=== PATIENT | male | born 1945 | race Caucasian/White ===

== ENCOUNTER 2017-08-14 13:25 | Observation (INO) | payer BC, MEDICARE ==
--- NOTE | 2017-08-14 14:00 | RAD ---
CHEST 1 VIEW: Date: 08/14/17 HISTORY: Chest pain for a few days. COMPARISON: None. FINDINGS: Normal cardiac silhouette. Pulmonary vessels and hilum are normal. No consolidation or mass. No pneum othorax or osseous abnormalities. IMPRESSION: No acute cardiopulmonary process. POS: [facility]
[2017-08-14 14:26] LABS: #Eosinphils 0.2 thou/uL (0.0-0.7); #Lymphocytes 1.9 thou/uL (1.20-3.40); #Monocytes 0.5 thou/uL (0.11-0.59); #Neutrophils 5.7 thou/uL (1.40-6.50); %Basophils 0.6 % (0.0-1.0); %Eosinophils 2.4 % (0.0-10.0); %Lymphocytes 22.7 % (21.0-51.0); %Monocytes 6.1 % (0.0-10.0); %Neutrophils 68.2 % (42.0-75.0); Hemoglobin 15.6 g/dL (14.0-18.0); Mean Corpuscular HGB CONC 34.8 g/dL (32.0-36.0); Mean Corpuscular Hemoglobin 30.9 pg (27.0-31.0); Mean Corpuscular Volume 88.7 fl (80.0-94.0); Mean Platelet Volume 8.3 fL (7.4-10.4); Platelet Count 164 thou/uL (130-400); RBC Distribution Width 12.9 % (11.5-14.5); Red Blood Cell (RBC) Count 5.06 mill/uL (4.70-6.10); White Blood Cell (WBC) Count 8.4 thou/uL (4.8-10.8)
[2017-08-14 14:48] LABS: ALT (SGPT) 18 U/L (8-55); AST (SGOT) 20 U/L (5-34); Albumin 4.6 g/dL (3.4-4.8); Alkaline Phosphatase 53 U/L (40-150); Anion Gap 15 mmol/L (10-20); BUN (Urea Nitrogen) 26 mg/dL (8.4-25.7); Bilirubin, Total 0.5 mg/dL (0.2-1.2); CK (CPK) 75 U/L (30-200); Calc. Creatinine Clearance 0 mL/min (70-130); Calcium 10.2 mg/dL (7.8-10.44); Carbon Dioxide 29 mmol/L (23-31); Chloride 100 mmol/L (98-107); Estimated GFR-MDRD 60; Globulin 2.8 g/dL (2.4-3.5); Glucose 216 mg/dL (80-115); Lipase 44 U/L (8-78); Potassium 3.7 mmol/L (3.5-5.1); Protein, Total 7.4 g/dL (5.8-8.1); Sodium 140 mmol/L (136-145)
[2017-08-14 14:52] LABS: CKMB 1.3 ng/mL (0-6.6); Troponin I Less than 0.010 ng/mL (< 0.028)
--- NOTE | 2017-08-14 16:08 | HP ---
PRIMARY CARE PHYSICIAN: Dr. Gerardo Castillo. REASON FOR ADMISSION: Unstable angina. HISTORY OF PRESENT ILLNESS: A 71-year-old male who has underlying history of diabetes type 2, hypert ension, dyslipidemia, and obesity, who came to emergency room for evaluation of chest discomfort. Th e patient reports that for last week or two, he was experiencing intermittent dizziness. For last 2- 3 weeks, he has decreased exercise tolerance. He gets dyspnea on exertion. For last 2-3 weeks, he a lso gets intermittent chest pressure sensation, lasts for 5-20 minutes, subsides by itself and after that patient feels exhausted and fatigued feeling. This was intermittently going on for last 2-3 wee ks. There is no specific aggravating or relieving factor, but patient noticed that his exercise tole chung is reduced. Patient saw primary care physician. At that time, patient was found with multiple PVCs and patient w as referred to Cardiology. Dr. Conway saw this patient and he gave him 1 week of Holter monitoring, which he returned back last week and there was plan for outpatient echocardiography and stress test. Last 3 nights, patient every night, he is waking up from sleep with chest discomfort. He has very di fficult to describe, but he feels that feeling gets significantly worse and so will wake up and that feeling lasted for 5-10 minutes and subsided by itself and after that he goes back to sleep. This becker ppened back to back 3 nights and that is why he was concerned about and decided to come to emergency room for evaluation. He denies any associated nausea, vomiting, diaphoresis. He denies any constipa tion, diarrhea, melena, hematochezia. He denies any acid reflux. He denies any headache, focal barbara r or sensory symptoms, but he feels dizziness. He denies any fever or chills. He denies any pleuris y. He denies any cough. He denies any orthopnea, PND or leg swelling. He denies any calf tendernes s. He denies any immobilization. His lifestyle is pretty much sedentary. He is working in the [employer]. REVIEW OF SYSTEMS: The following complete review of systems was negative, unless otherwise mentioned in the HPI or below: Constitutional: Weight loss or gain, ability to conduct usual activities. Skin: Rash, itching. Eyes: Double vision, pain. ENT/Mouth: Nose bleeding, neck stiffness, pain, tenderness. Cardiovascular: Palpitations, dyspnea on exertion, orthopnea. Respiratory: Shortness of breath, wheezing, cough, hemoptysis, fever or night sweats. Gastrointestinal: Poor appetite, abdominal pain, heartburn, nausea, vomiting, constipation, or diarr hea. Genitourinary: Urgency, frequency, dysuria, nocturia. Musculoskeletal: Pain, swelling. Neurologic/Psychiatric: Anxiety, depression. Allergy/Immunologic: Skin rash, bleeding tendency. Please see my HPI for pertinent positive and negative. All other review of systems reviewed and nega tive except as mentioned in the HPI. ALLERGIES: No known drug allergy. CURRENT HOME MEDICATIONS: The patient did not bring medication in the emergency room at this point, but his family member is going to obtain medication from home. At that time, we will review. Davey owens is not able to tell me exact name and dose of medication. PAST MEDICAL HISTORY: Diabetes type 2, obesity, dyslipidemia, hypertension, and history of spina bif tessie. PAST SURGICAL HISTORY: The patient had cardiac catheterization about 20 years ago without any signif icant abnormality, tonsillectomy and vasectomy. PAST PSYCHIATRIC HISTORY: Reviewed and negative. FAMILY HISTORY: Father had CABG in their 70s. Mother had multiple TIA. Grandfather had heart attac k as well as aneurysm rupture. No family history of cancer. SOCIAL HISTORY: The patient lives at home with family. He denies any tobacco, alcohol or illicit dr ug abuse. He is working in the office. He has pretty much sedentary lifestyle. EMERGENCY ROOM COURSE: Reviewed. PHYSICAL EXAMINATION: VITAL SIGNS: On arrival, blood pressure 135/95, pulse 74, respiratory rate 20, temperature 98.0, sat uration 96% on room air, weight 98.4 kilograms. GENERAL: Patient is currently alert, awake, no acute distress. HEAD: Normocephalic, atraumatic. EYES: Pupils round, reactive to light. Extraocular muscle intact. ENT: Oropharynx within normal limits. Moist mucous membranes, no oral lesion, no pharyngeal erythem a, no exudate. NECK: Supple, no JVD, no thyromegaly, no carotid bruit, no jugular venous distention. LUNGS: Clear to auscultation without any rhonchi or rales. CARDIAC: S1 and S2 regular without any murmur. ABDOMEN: Soft, obesity present. Bowel sounds present, nontender, nondistended. No organomegaly, no mass, no suprapubic tenderness. BACK: Examination unremarkable, no CVA tenderness. EXTREMITIES: Upper extremity passive movements of all joints are normal. Lower extremities: No franky ma. Good peripheral pulsation, no calf tenderness. SKIN: No skin rash. HEMATOLOGICAL SYSTEM: No lymphadenopathy. PSYCHIATRIC: Normal affect. NEUROLOGIC: Nonfocal examination. The patient moves all 4 limbs. Plantar bilateral flexor. IMAGING DATA AND SIGNIFICANT LABORATORY DATA: 1. EKG was showing normal sinus rhythm, multiple premature ventricular complexes, incomplete right b undle branch block pattern, moderate LVH. 2. Chest x-ray based on my review, no acute cardiopulmonary process. 3. CBC: WBC 8.4, hemoglobin 15.6, platelet 164. 4. BMP: Sodium 140, potassium 3.7, chloride 100, carbon dioxide 29, anion gap 15, BUN 26, creatinin e 1.20, glucose 216, calcium 10.2. 5. LFT: AST 20, ALT 18, alkaline phosphatase 53, albumin 4.6, lipase 44. CK 75, CK-MB 1.3, troponi n I less than 0.010. ASSESSMENT AND PLAN/IMPRESSION: 1. Unstable angina. This patient has symptoms consistent with recurrent angina which is getting wor se. He has dyspnea on exertion, intermittent angina. For last 2 weeks and for the last 3 nights, he has to wake up from severe chest discomfort with pressure-like feeling well though his cardiac enzym es are negative and EKG is not showing any new ischemic changes, but he had multiple PVCs on monitor. I am considering this as patient has an unstable angina. He has low LUIS CARLOS score, but patient may ne ed a cardiac catheterization. We will consult Cardiology. This patient is already planned for outpa tient stress test and echocardiography which we will try to do while in hospital. He may benefit fro m cardiac catheterization. We will do serial cardiac enzymes, monitor on telemetry floor. We will c heck lipid profile for risk stratification. We will continue nitropatch q.8 hourly, aspirin 325 mg p .o. daily and we will also provide Lovenox 1 mg per kg subcu twice daily. We will keep him n.p.o. af ter midnight. Stress test versus cardiac catheterization will be decided after Cardiology evaluation . We will obtain echocardiography. 2. Diabetes type 2. We will continue insulin as per sliding scale per protocol. Diabetic diet will be given. 3. Obstructive sleep apnea. We will continue his home continuous positive airway pressure machine a t 12 cm of water. 4. Hypertension. We are continuing with nitropatch q.8 hourly. We will obtain patient's home medic ations and resume selected home medication. 5. Obesity. Dietary education given and weight loss education given. Healthy lifestyle measures di scussed with the patient. 6. Dyslipidemia. Check lipid profile tomorrow and continue Lipitor 40 mg p.o. at bedtime. 7. Deep venous thrombosis prophylaxis. Patient is already given Lovenox 1 mg per kg. 8. Multiple premature ventricular contractions, most likely related with underlying ischemia. We wi ll start metoprolol 25 mg p.o. twice daily. 9. Deep venous thrombosis prophylaxis. Patient is already on Lovenox therapy. 10. Gastrointestinal prophylaxis, Pepcid 20 mg p.o. b.i.d. 11. Code status: The patient is FULL CODE. The patient is making his decision by himself. Disposition plan based on clinical course and Cardiology recommendation. Plan of care discussed with the patient and family member at bedside in the emergency room.
[2017-08-14 17:35] VITALS: BMI 31.7
[2017-08-14] MEDS ORDERED: hydrALAZINE 20 MG/ML VIAL SLOW IVP PRN (17:35)
[2017-08-14] MEDS ORDERED: Dextrose 5% in Water 1,000 ML IV PRN (17:35)
[2017-08-14] MEDS ORDERED: Nitroglycerin 0.4 MG TAB (25 Tab Bottle) PO PRN (17:35)
[2017-08-14] MEDS ORDERED: Eucerin (Mineral Oil/Petrolatum,White) 30 gm Jar TOP PRN (17:35)
[2017-08-14] MEDS ORDERED: Milk Of Magnesia 30 ML UDCUP PO PRN (17:35)
[2017-08-14] MEDS ORDERED: Artificial Tears 18 DROP/0.9 ML EA EYE PRN (17:35)
[2017-08-14] MEDS ORDERED: Loratadine 10 MG TAB PO PRN (17:35)
[2017-08-14] MEDS ORDERED: Senokot 8.6 MG TAB PO PRN (17:35)
[2017-08-14] MEDS ORDERED: Sodium Chloride 0.65% Nasal 44 ML BOT EA NARE PRN (17:35)
[2017-08-14] MEDS ORDERED: Ondansetron HCl/PF 4 MG/2 ML Vial IVP PRN (17:35)
[2017-08-14] MEDS ORDERED: Dextrose 50% Abboject 50 ML SYRINGE SLOW IVP PRN (17:35)
[2017-08-14] MEDS ORDERED: Diabetic Tussin 200 MG/10 ML UDCUP PO PRN (17:35)
[2017-08-14] MEDS ORDERED: Loperamide HCl 2 MG CAP PO PRN (17:35)
[2017-08-14] MEDS ORDERED: Zolpidem Tartrate 5 MG TAB PO PRN (17:35)
[2017-08-14] MEDS ORDERED: HYDROcodone/Acetaminophen 5/325 mg Tablet PO PRN (17:35)
[2017-08-14] MEDS ORDERED: Acetaminophen 325 MG TAB PO PRN (17:35)
[2017-08-14] MEDS ORDERED: Ondansetron ODT 4 MG TAB PO PRN (17:35)
[2017-08-14] MEDS ORDERED: Chloraseptic Spray 180 ml Bottle PO PRN (17:35)
[2017-08-14] MEDS ORDERED: Mag-Al 1200 mg/1200 mg/30 ML UDCUP PO PRN (17:35)
[2017-08-14] MEDS ORDERED: HumaLOG 300 UNITS/3 ML VIAL SC PRN ×2 (17:35)
[2017-08-14] MEDS ORDERED: Communication Order-Pharmacy FS SCH (18:30)
[2017-08-14 18:33] LABS: Troponin I Less than 0.010 ng/mL (< 0.028)
--- NOTE | 2017-08-14 18:59 | CON ---
DATE OF CONSULTATION: 08/14/2017 CARDIOLOGY CONSULTATION REASON FOR CONSULTATION: Chest pain. HISTORY OF PRESENT ILLNESS: Mr. Hernandez is a pleasant 71-year-old white gentleman who comes to the hospital for chest pain. He was seen just about a week or two ago in the office for the first time for PVCs. He had some chest discomfort, saw his PCP, was found to have several PVCs on the EKG, but no ischemic changes. He was sent to me and I saw him. We did a Holter monitor, which actually has a lready resulted. He showed several very frequent PVCs about 20,000 worth. He had episodes of 3 beat s of PVCs in a row consistent with nonsustained SVT, but is very slow at a rate about 100 beats per m inute, so this may just be PVCs consecutively. However, he started noticing increase in his chest pa in in the last few days to the point where he was woken up in the middle of the night by it. He deci ded to come in for evaluation. So far, he has been ruled out with negative enzymes and EKG was unrem arkable for ischemia; however, his symptoms are concerning for angina. PAST MEDICAL HISTORY: 1. Type 2 diabetes. 2. Hypertension. 3. Hyperlipidemia. 4. History of normal heart catheterization in 2012. 5. History of multiple very frequent PVCs. 6. History of spina bifida. OUTPATIENT MEDICATIONS: 1. Metformin 1500 mg a day. 2. Vitamin B12. 3. Aspirin 81 mg a day. 4. Potassium chloride 10 mEq a day. 5. Pioglitazone 15 mg at bedtime. 6. Losartan/hydrochlorothiazide 100/25 mg a day. 7. Vitamin D3. 8. Norvasc 5 mg at bedtime. 9. Metoprolol succinate 100 mg at bedtime. 10. Glipizide 10 mg b.i.d. 11. Rosuvastatin 5 mg at bedtime. ALLERGIES: No known drug allergies. SOCIAL HISTORY: No alcohol, tobacco or drugs. FAMILY HISTORY: Father had bypass in his 70s. Mother with multiple strokes, TIAs. PAST SURGICAL HISTORY: 1. Cardiac catheterization several years back which was normal. 2. Tonsillectomy. 3. Vasectomy. REVIEW OF SYSTEMS: A 12 point review of systems was done, is otherwise negative unless stated in the history of present illness. PHYSICAL EXAMINATION: VITAL SIGNS: Temperature 98.2, pulse 74, respiratory rate 20, satting 96% on room air, blood pressur e 136/95. GENERAL: Awake, alert and oriented x3, in no distress. HEENT: Normocephalic, atraumatic. NECK: Supple. LUNGS: Clear. CARDIOVASCULAR: S1, S2. No S3, no S4. No murmurs, no rubs. ABDOMEN: Soft. Positive bowel sounds. EXTREMITIES: No edema. SKIN: Warm and dry. LABORATORY WORK: Reviewed. CBC is unremarkable. Chemistry is unremarkable except for glucose of 21 6. GFR was 60. Troponin is undetectable x1. CK-MB is 1.3, albumin of 4.6, lipase of 44. EKG was reviewed. Chest x-ray was reviewed and unremarkable. ASSESSMENT AND PLAN: Unstable angina: Symptoms significantly have changed since last seen and are c onsistent with a diagnosis of unstable angina. We will plan on doing a heart catheterization tomorro w to further risk stratify. We have spoken about the risks and benefits of the procedure, risks incl uding, but not limited to stroke, myocardial infarction, , bleeding and need for blood transfusi on, limb loss, organ loss, vessel injury requiring surgical repair, emergent bypass surgery need. He verbalized understanding of this and he agrees to proceed. Drug-eluting stents if needed. Further recommendation per results of the coronary angiogram.
[2017-08-14] MEDS ORDERED: Losartan/Hydrochlorothiazide 100 mg/25 mg Tablet PO SCH (21:00)
[2017-08-14] MEDS ORDERED: Pioglitazone HCl 15 MG TAB PO SCH (21:00)
[2017-08-14] MEDS ORDERED: Potassium Chloride 10 MEQ TAB PO SCH (21:00)
[2017-08-14] MEDS ORDERED: Atorvastatin Calcium 40 MG TAB PO SCH (21:00)
[2017-08-14] MEDS ORDERED: Cyanocobalamin (Vitamin B-12) 1,000 MCG TAB PO SCH (21:00)
[2017-08-14] MEDS ORDERED: Metoprolol Tartrate 25 MG TAB PO SCH (21:00)
[2017-08-14] MEDS ORDERED: Enoxaparin Sodium 100 MG/ML SYRINGE SC SCH (21:00)
[2017-08-14] MEDS ORDERED: Amlodipine 5 MG TAB PO SCH (21:00)
[2017-08-14] MEDS ORDERED: Rosuvastatin 5 MG TAB PO SCH (21:00)
[2017-08-14 21:06] LABS: Troponin I Less than 0.010 ng/mL (< 0.028)
[2017-08-14] MEDS: Famotidine 20 MG TAB PO SCH (22:12)
[2017-08-14] MEDS ORDERED: Sodium Chloride 0.9% 1,000 ML IV SCH (23:30)
[2017-08-14] MEDS: Nitroglycerin 2% Ointment 1 INCH/1 GM Packet TOP SCH (23:37)
[2017-08-15] MEDS: Nitroglycerin 2% Ointment 1 INCH/1 GM Packet TOP SCH (00:10)
[2017-08-15 04:59] LABS: #Basophils 0.1 thou/uL (0.0-0.2); #Eosinphils 0.2 thou/uL (0.0-0.7); #Lymphocytes 2.6 thou/uL (1.20-3.40); #Monocytes 0.8 thou/uL (0.11-0.59); #Neutrophils 5.5 thou/uL (1.40-6.50); %Basophils 0.6 % (0.0-1.0); %Eosinophils 2.4 % (0.0-10.0); %Lymphocytes 28.3 % (21.0-51.0); %Monocytes 8.4 % (0.0-10.0); %Neutrophils 60.3 % (42.0-75.0); Hemoglobin 15.5 g/dL (14.0-18.0); Mean Corpuscular HGB CONC 33.3 g/dL (32.0-36.0); Mean Corpuscular Hemoglobin 29.5 pg (27.0-31.0); Mean Corpuscular Volume 88.5 fl (80.0-94.0); Mean Platelet Volume 8.4 fL (7.4-10.4); Platelet Count 151 thou/uL (130-400); RBC Distribution Width 12.9 % (11.5-14.5); Red Blood Cell (RBC) Count 5.24 mill/uL (4.70-6.10); White Blood Cell (WBC) Count 9.1 thou/uL (4.8-10.8)
[2017-08-15 05:09] LABS: Anion Gap 12 mmol/L (10-20); BUN (Urea Nitrogen) 22 mg/dL (8.4-25.7); Calc. Creatinine Clearance 85 mL/min (70-130); Carbon Dioxide 29 mmol/L (23-31); Chloride 101 mmol/L (98-107); Cholesterol 117 mg/dl (< 200 Desired); Estimated GFR-MDRD 64; Glucose 177 mg/dL (80-115); HDL Cholesterol 29 mg/dL (>60 Neg Risk); LDL Cholesterol, Calculated 35 mg/dL; Potassium 3.5 mmol/L (3.5-5.1); Sodium 138 mmol/L (136-145); Triglycerides 264 mg/dL (Less than 150)
[2017-08-15] MEDS: Famotidine 20 MG TAB PO SCH (05:44)
[2017-08-15] MEDS ORDERED: Lidocaine 1% (PF) 30 ML VIAL ONE (07:02)
[2017-08-15] MEDS ORDERED: Nitroglycerin 100MG/250ML BOT 250 ML ONE (08:15)
[2017-08-15] MEDS ORDERED: Verapamil 5 MG/2 ML VIAL ONE (08:15)
[2017-08-15] MEDS ORDERED: Fentanyl 100 MCG/2 ML VIAL ONE (08:36)
[2017-08-15] MEDS ORDERED: Midazolam HCl 2 mg/2 ml Vial ONE (08:36)
[2017-08-15] MEDS ORDERED: Heparin 10,000 UNITS/1 ML VIAL ONE (08:36)
[2017-08-15] MEDS ORDERED: Acetaminophen/Codeine 30-300mg Tablet PO PRN (09:00)
[2017-08-15] MEDS ORDERED: glipiZIDE 10 MG TAB PO SCH (09:00)
[2017-08-15] MEDS ORDERED: Aspirin 325 MG TAB PO SCH (09:00)
[2017-08-15] MEDS ORDERED: traMADol HCl 50 MG TAB PO PRN (09:00)
[2017-08-15] MEDS ORDERED: Sodium Chloride 0.9% 1,000 ML IV SCH (09:15)
[2017-08-15] MEDS ORDERED: Sodium Chloride 0.9% 200 ML IV SCH (10:00)
[2017-08-15] MEDS ORDERED: Iopamidol 370 76% 100 ML VIAL ONE (11:35)
--- NOTE | 2017-08-15 11:50 | PDOC.PN ---
- Subjective Encounter Start Date: 08/15/17 Encounter Start Time: 07:10 -: old records requested/rev Patient seen and examined for chest pain. No new complaints. Noted overnight events - Objective Resuscitation Status: Resuscitation Status FULL:Full Resuscitation MAR Reviewed: Yes Vital Signs & Weight: Vital Signs (12 hours) Temp Pulse Resp BP BP Pulse Ox 08/15/17 09:07 55 L 14 119/64 08/15/17 07:55 97.5 F L 55 L 14 08/15/17 07:10 97.5 F L 72 12 118/69 95 08/15/17 04:00 97.4 F L 53 L 20 118/70 96 Weight Weight 215 lb I&O: 08/14/17 08/15/17 08/16/17 06:59 06:59 06:59 Intake Total 803 Balance 803 Result Diagrams: 08/15/17 03:53 08/15/17 03:53 Additional Labs: Accuchecks 08/15/17 08/14/17 10:49 20:47 POC Glucose 197 H 125 H Radiology Reviewed by me: Yes EKG Reviewed by me: Yes Phys Exam - Physical Examination Constitutional: NAD HEENT: PERRLA, moist MMs, sclera anicteric Neck: no JVD, supple Respiratory: no wheezing, no rales, no rhonchi Cardiovascular: RRR, no significant murmur, no rub Gastrointestinal: soft, non-tender, no distention, positive bowel sounds Musculoskeletal: no edema, pulses present Neurological: non-focal, normal sensation, moves all 4 limbs Lymphatic: no nodes Psychiatric: normal affect, A&O x 3 Skin: no rash, normal turgor Dx/Plan (1) PVCs (premature ventricular contractions) Code(s): I49.3 - VENTRICULAR PREMATURE DEPOLARIZATION Status: Acute (2) Unstable angina Status: Acute (3) Diabetes type 2, controlled Code(s): E11.9 - TYPE 2 DIABETES MELLITUS WITHOUT COMPLICATIONS Status: Chronic (4) Dyslipidemia Code(s): E78.5 - HYPERLIPIDEMIA, UNSPECIFIED Status: Chronic (5) Hypertension Code(s): I10 - ESSENTIAL (PRIMARY) HYPERTENSION Status: Chronic (6) SHENA (obstructive sleep apnea) Code(s): G47.33 - OBSTRUCTIVE SLEEP APNEA (ADULT) (PEDIATRIC) Status: Chronic (7) Obesity Code(s): E66.9 - OBESITY, UNSPECIFIED Status: Chronic - Plan cont current plan of care, plan discussed w/ family * cardiac cath normal * echo pending * will discharge today when cardiology ok. Review of Systems - Review of Systems Eyes: negative: Pain, Vision Change, Conjunctivae Inflammation, Eyelid Inflammation, Redness, Other ENT: negative: Ear Pain, Ear Discharge, Nose Pain, Nose Discharge, Nose Congestion, Mouth Pain, Mouth Swelling, Throat Pain, Throat Swelling, Other Respiratory: negative: Cough, Dry, Shortness of Breath, Hemoptysis, SOB with Excertion, Pleuritic Pain, Sputum, Wheezing Cardiovascular: negative: chest pain, palpitations, orthopnea, paroxysmal nocturnal dyspnea, edema, light headedness, other Gastrointestinal: negative: Nausea, Vomiting, Abdominal Pain, Diarrhea, Constipation, Melena, Hematochezia, Other Genitourinary: negative: Dysuria, Frequency, Incontinence, Hematuria, Retention , Other Musculoskeletal: negative: Neck Pain, Shoulder Pain, Arm Pain, Back Pain, Hand Pain, Leg Pain, Foot Pain, Other Skin: negative: Rash, Lesions, Jagdish, Bruising, Other Neurological: negative: Weakness, Numbness, Incoordination, Change in Speech, Confusion, Seizures, Other - Medications/Allergies Allergies/Adverse Reactions: Allergies Allergy/AdvReac Type Severity Reaction Status Date / Time No Known Allergies Allergy Verified 08/15/17 00:08 Medications: Current Medications Acetaminophen (Tylenol) 650 mg PO Q4H PRN PRN Reason: Headache/Fever or Pain Acetaminophen/Codeine Phosphate (Tylenol #3) 1 tab PO Q4H PRN PRN Reason: Mild Pain (1-3) Hydrocodone Bitart/Acetaminophen ([place] 5/325) 1 tab PO Q4H PRN PRN Reason: Moderate Pain (4-6) Al Hydroxide/Mg Hydroxide (Maalox) 30 ml PO Q6H PRN PRN Reason: Heartburn or Indigestion Amlodipine Besylate (Norvasc) 5 mg PO [facility] Last Admin: 08/14/17 22:12 Dose: 5 mg Artificial Tears (Tears Naturale) 0 drop EA EYE PRN PRN PRN Reason: Dry Eyes Aspirin (Aspirin) 325 mg PO DAILY [facility] Last Admin: 08/15/17 05:44 Dose: 325 mg Cholecalciferol (Vitamin D3) 1,000 units PO [facility] Last Admin: 08/14/17 22:12 Dose: 1,000 units Cyanocobalamin (Vitamin B-12) 5,000 mcg PO [facility] Last Admin: 08/14/17 22:12 Dose: 5,000 mcg Dextrose/Water (Dextrose 50%) 25 gm SLOW IVP PRN PRN PRN Reason: Hypoglycemia Famotidine (Pepcid) 20 mg PO BID [facility] Last Admin: 08/15/17 05:44 Dose: 20 mg Glipizide (Glucotrol) 10 mg PO DAILY [facility] Glucagon (Glucagon) 1 mg IM PRN PRN PRN Reason: Hypoglycemia Guaifenesin (Robitussin Sf) 200 mg PO Q4H PRN PRN Reason: Cough HCTZ/Losartan Potassium (Hyzaar 100/25) 1 tab PO [facility] Last Admin: 08/14/17 22:12 Dose: 1 tab Hydralazine HCl (Apresoline) 10 mg SLOW IVP Q4H PRN PRN Reason: Systolic BP > 180 Dextrose/Water (D5w) 1,000 mls @ 0 mls/hr IV .Q0M PRN; As Directed PRN Reason: Hypoglycemia Sodium Chloride (Normal Saline 0.9%) 1,000 mls @ 100 mls/hr IV .Q10H [facility] Last Admin: 08/15/17 09:52 Dose: Not Given Sodium Chloride (Normal Saline 0.9%) 200 mls @ 0 mls/hr IV 1000 FIOR PRN Reason: As Directed Stop: 08/15/17 12:00 Insulin Human Lispro (Humalog) 0 units SC .MODERATE SLIDING SC PRN PRN Reason: Moderate Correctional Scale Insulin Human Lispro (Humalog) 0 units SC .BEDTIME SLIDING SC PRN PRN Reason: Bedtime Correctional Scale Loperamide HCl (Imodium) 2 mg PO PRN PRN PRN Reason: Diarrhea/Loose Stools Loratadine (Claritin) 10 mg PO DAILYPRN PRN PRN Reason: Sinus Symptoms Magnesium Hydroxide (Milk Of Magnesium) 30 ml PO DAILYPRN PRN PRN Reason: Constipation Metoprolol Succinate (Toprol Xl) 100 mg PO [facility] Last Admin: 08/14/17 22:12 Dose: 100 mg Mineral Oil/White Petrolatum (Eucerin Cream) 0 gm TOP BIDPRN PRN PRN Reason: Dry Skin Miscellaneous Information (Communication Order-Pharmacy) 0 each FS ONE [facility] Stop: 08/15/17 18:31 Nitroglycerin (Nitro-Bid 2% Ointment) 0.5 inch TOP Q8HR [facility] Last Admin: 08/15/17 00:10 Dose: Not Given Ondansetron HCl (Zofran Odt) 4 mg PO Q6H PRN PRN Reason: Nausea/Vomiting Ondansetron HCl (Zofran) 4 mg IVP Q6H PRN PRN Reason: Nausea/Vomiting Phenol (Chloraseptic [place] 180 Ml Bot) 0 ml PO PRN PRN PRN Reason: Sore Throat Pioglitazone HCl (Actos) 15 mg PO HS [facility] Last Admin: 08/14/17 23:38 Dose: Not Given Potassium Chloride (Klor-Con 10) 10 meq PO [facility] Last Admin: 08/14/17 23:44 Dose: 10 meq Rosuvastatin Calcium (Crestor) 5 mg PO [facility] Last Admin: 08/14/17 23:44 Dose: 5 mg Senna (Senokot) 2 tab PO HSPRN PRN PRN Reason: Constipation Sodium Chloride ([place] Nasal [place] 0.65%) 0 ml EA NARE QIDPRN PRN PRN Reason: Nasal Congestion Tramadol HCl (Ultram) 50 mg PO Q6H PRN PRN Reason: Moderate Pain (4-6) Zolpidem Tartrate (Ambien) 5 mg PO HSPRN PRN PRN Reason: Insomnia
[2017-08-15 12:08] VITALS: BP 115/56; TEMP 97.4
--- NOTE | 2017-08-15 13:57 | DIS ---
DATE OF ADMISSION: 08/14/2017 DATE OF DISCHARGE: 08/15/2017 PRIMARY CARE PHYSICIAN: Gerardo Castillo M.D. DISCHARGE DISPOSITION: Home. PRIMARY DISCHARGE DIAGNOSES: 1. Premature ventricular contractions. 2. Unstable angina. SECONDARY DISCHARGE DIAGNOSES: Diabetes type 2, dyslipidemia, hypertension, obesity, and obstructive sleep apnea. PRIMARY PROCEDURE/OPERATION: Cardiac catheterization was normal. RADIOLOGICAL INVESTIGATION: Chest x-ray normal. Echocardiography showed diastolic dysfunction. SIGNIFICANT LABORATORY DATA: WBC 9.1, hemoglobin 15.5, platelet 151. Sodium 138, creatinine 1.13, a nd LDL 35. Cardiac enzymes negative. LFT normal. DISCHARGE MEDICATIONS: Amlodipine 5 mg p.o. at bedtime, aspirin 81 mg p.o. at bedtime, vitamin D3 10 00 units p.o. daily, vitamin B12 5000 mcg p.o. at bedtime, glipizide 10 mg p.o. daily, losartan with hydrochlorothiazide one tablet p.o. at bedtime, metformin 1500 mg p.o. daily (patient is advised to s tart after 48 hours), Toprol-XL 100 mg p.o. at bedtime, Actos 15 mg p.o. at bedtime, potassium chlori de 10 mEq p.o. at bedtime, Crestor 5 mg p.o. at bedtime. CONTRAINDICATIONS: None. CODE STATUS: FULL CODE. INPATIENT CONSULTANTS: Dr. Conway. TEST RESULTS PENDING ON DISCHARGE: None. ALLERGIES: No known drug allergy. DISCHARGE PLAN: Post hospital, patient will follow up with primary care physician in 1 week. The pa tiemartin will make appointment with Dr. Conway as instructed. HOSPITAL COURSE: A 71-year-old male with above-mentioned medical problem who was experiencing interm ittent dizziness and chest pain for the last 2 weeks. He was also having dyspnea on exertion. He wa s feeling chest tightness. For last 3 nights, he was waking up with chest pain and we suspected unst able angina. We kept this patient in the hospital for observation. We did serial cardiac enzyme emeterio t were negative for any acute abnormality. We consulted Cardiology and Cardiology did cardiac cathet erization. Cardiac catheterization was completely normal. Echocardiography showed diastolic dysfunc tion. At this point, this patient has symptomatic premature ventricular complexes that contributing to his chest pain and dizziness. Patient will follow up with Cardiology as instructed. We are not making any change in his home medication. If Cardiology okay, then this patient will be d ischarged home later on today. The patient is seen and examined at bedside today. Please see my progress note from today for furthe r details. The patient is instructed to hold metformin for 48 hours.
[2017-08-16] MEDS ORDERED: glipiZIDE 10 MG TAB PO SCH (09:00)
== END 2017-08-15 13:51 | disposition home or self-care (01) ==
LOC: ERS 13:25 → 2SW 17:31
PROVIDERS: ADMIT Family Medicine; ATTEND Family Medicine
DX: I49.9 Cardiac arrhythmia, unspecified (principal); E11.9 Type 2 diabetes mellitus without complications; I10 Essential (primary) hypertension; E78.2 Mixed hyperlipidemia; Z79.899 Other long term (current) drug therapy; Z79.84 Long term (current) use of oral hypoglycemic drugs; Z79.82 Long term (current) use of aspirin
CPT/HCPCS: 36415; 36416; 71045; 80048; 80053; 80061; 82553; 83690; 84484; 85025; 93005; 93306; 93458; 93798; 96360; 96361; 96372; 99152; C1769; G0378; J1644; J1650; J2001; J2250; J3010

== ENCOUNTER 2017-10-17 15:31 | Outpatient (CLI) | payer BC ==
[2017-10-17 15:46] VITALS: BMI 31.2
[2017-10-17 16:36] LABS: Hemoglobin 15.8 g/dL (14.0-18.0); Mean Corpuscular HGB CONC 35.4 g/dL (32.0-36.0); Mean Corpuscular Hemoglobin 31.1 pg (27.0-31.0); Mean Corpuscular Volume 87.9 fL (78.0-98.0); Mean Platelet Volume 8.1 fL (7.4-10.4); Platelet Count 165 thou/uL (130-400); RBC Distribution Width 12.7 % (11.5-14.5); Red Blood Cell (RBC) Count 5.07 mill/uL (4.70-6.10); White Blood Cell (WBC) Count 8.7 thou/uL (4.8-10.8)
[2017-10-17 16:48] LABS: INR-International Normal Ratio 1.1; PTT 31.1 SEC (22.9-36.1); Prothrombin Time 14.4 SEC (12.0-14.7)
[2017-10-17 16:53] LABS: Anion Gap 9 mmol/L (10-20); BUN (Urea Nitrogen) 28 mg/dL (8.4-25.7); Calc. Creatinine Clearance 73 mL/min (70-130); Calcium 10.1 mg/dL (7.8-10.44); Carbon Dioxide 32 mmol/L (23-31); Chloride 102 mmol/L (98-107); Estimated GFR-MDRD 53; Glucose 157 mg/dL (80-115); Sodium 139 mmol/L (136-145)
--- NOTE | 2017-10-19 14:33 | EKG ---
Test Reason : Blood Pressure : / mmHG Vent. Rate : 052 BPM Atrial Rate : 052 BPM P-R Int : 194 ms QRS Dur : 102 ms QT Int : 438 ms P-R-T Axes : 039 -25 018 degrees QTc Int : 407 ms Sinus bradycardia Incomplete right bundle branch block Cannot rule out Anterior infarct , age undetermined Abnormal ECG When compared with ECG of 14-AUG-2017 13:29, Premature ventricular complexes are no longer Present QT has shortened Confirmed by DR. Jorge CAMPBELL ([id number]) on 10/19/2017 2:32:30 PM Referred By: HARINDER Confirmed By:DR. Jorge CAMPBELL
== END 2017-10-17 15:32 | disposition home or self-care (01) ==
LOC: LABBT 15:31
PROVIDERS: ATTEND Internal Medicine Cardiovascular Disease
DX: Z01.818 Encounter for other preprocedural examination (principal); I49.3 Ventricular premature depolarization
CPT/HCPCS: 80048; 85027; 85610; 85730; 93005; 93010

== ENCOUNTER 2017-10-20 05:53 | Observation (INO) | payer BC ==
[2017-10-20] MEDS ORDERED: Lidocaine 1% (PF) 30 ML VIAL ONE (06:43)
[2017-10-20] MEDS ORDERED: Heparin 0 ML ONE (06:43)
[2017-10-20] MEDS ORDERED: Heparin 10,000 UNITS/1 ML VIAL ONE ×2 (06:43→10:22)
[2017-10-20] MEDS ORDERED: Propofol 500 MG/50 ML VIAL ONE ×5 (08:04→10:22)
[2017-10-20] MEDS ORDERED: Heparin 25,000 units/D5W 500 ML ONE (09:38)
[2017-10-20] MEDS ORDERED: Isoproterenol 0.2 MG/1 ML AMP ONE (10:39)
[2017-10-20] MEDS ORDERED: Protamine Sulfate 50 MG/5 ML VIAL ONE (11:27)
[2017-10-20 13:15] VITALS: BMI 31.6
--- NOTE | 2017-10-20 13:34 | OP ---
DATE OF PROCEDURE: 10/20/2017 SURGEON: Dr. Berhane Hussein REFERRING PHYSICIAN: Dr. Linus Conway and Dr. Gerardo Castillo PROCEDURE: Electrophysiology study and radiofrequency ablation. REASON FOR PROCEDURE: Mr. 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 He has history of normal LV function and a prior left heart catheterization shows only mild coronary artery disease with 40-50% mid LAD stenosis only. He also has type 2 diabetes, hypertension. He is a gentleman experiencing increasing fatigue and tiredness. In view of the borderline LV function and high PVC burden of 30% at this time the plan is to ablate his PVCs. PROCEDURE: The patient received propofol by Anesthesia specialist. The right and left femoral veins area was prepped, draped, anesthetized using subcutaneous lidocaine. Two 8-Guamanian short sheaths were introduced in the right femoral venous area with ultrasound guidance. Through this a Decapolar catheter was advanced to the right ventricle and a ThermoCool SFST catheter was advanced to the right ventricle as well. 3D mapping of the right ventricle was performed, especially in the outflow tract. No early activation signal seen during the patient's frequent PVCs in this chamber. Following that, the left femoral vein, this area was prepped, draped, anesthetized and a 11 Guamanian short sheath was introduced through which an ice catheter was advanced to the right atrium and then the right ventricle. Through this location monitoring of the cath manipulation of the left side was performed as well as monitoring for effusion was performed. The right femoral artery was also accessed using multipurpose needle under ultrasound guidance. The ThermoCool SFST catheter was advanced to right femoral artery. Then, the aorta and eventually the aorta cuff. With close attention to the coronary artery origins 3D mapping of the 3 cusps were performed. No early activation during the PVCs are noted in this chamber either. Following that with full deflection the aortic valve was crossed, again close attention not to injure any of the arteries. A 3D mapping of the left ventricle was performed. The early activation was found between the left popliteal muscles and the mitral valve annulus superior aspect. During PVCs the local activation electrograms preceding the QRS by over 30 milliseconds in the best location. Radiofrequency ablation was delivered at this spot with 40 santana. Total of 6 ablation lesions were delivered with a total of 6.17 ablation time. During the first ablation the PVCs diminished and no recurrences were seen after that. The patient was placed on Isuprel and a extrastimuli fibrillation from the RV catheter was performed with up to 4 ventricular extrastimuli decremented to the refractory period. The RV ERP was 600/310/360/240. No ventricular tachycardia and no recurrent PVCs were seen on Isuprel. Baseline measurements. The sinus cycle length 841, NV 140, QRS 108, QT 388, 150 HV, 39 milliseconds. At the end of the case no pericardial effusion noted by ice and by cardiac silhouette The catheter was removed. Throughout the case IV heparin was administered to keep ACT over 350. At the end of the case the IV heparin was reversed with protamine administration. Catheter was pulled in the [employer]. The patient left with no complications. PRESTON
[2017-10-20] MEDS ORDERED: PROPOFOL 200 MG/20 ML VIAL ONE (15:09)
[2017-10-20] MEDS ORDERED: Amlodipine 5 MG TAB PO SCH (21:00)
[2017-10-20] MEDS ORDERED: Cyanocobalamin (Vitamin B-12) 1,000 MCG TAB PO SCH (21:00)
[2017-10-20] MEDS ORDERED: Rosuvastatin 5 MG TAB PO SCH (21:00)
[2017-10-20] MEDS ORDERED: Pioglitazone HCl 15 MG TAB PO SCH (21:00)
[2017-10-20] MEDS ORDERED: Losartan/Hydrochlorothiazide 100 mg/25 mg Tablet PO SCH (21:00)
[2017-10-20] MEDS ORDERED: Potassium Chloride 10 MEQ TAB PO SCH (21:00)
[2017-10-20] MEDS ORDERED: Aspirin 81 mg Enteric Coated Tablet PO SCH (21:00)
[2017-10-20] MEDS ORDERED: Metoprolol Tartrate 100 MG TAB PO SCH (21:00)
[2017-10-21] MEDS ORDERED: glipiZIDE 10 MG TAB PO SCH (07:30)
[2017-10-21] MEDS ORDERED: metFORMIN 500 MG TAB PO SCH (08:00)
[2017-10-21 11:26] VITALS: BP 118/72; TEMP 98.4
--- NOTE | 2017-10-21 12:51 | EKG ---
Test Reason : POST ABLATION Blood Pressure : / mmHG Vent. Rate : 066 BPM Atrial Rate : 066 BPM P-R Int : 194 ms QRS Dur : 100 ms QT Int : 412 ms P-R-T Axes : 058 -24 043 degrees QTc Int : 431 ms Normal sinus rhythm RSR' or QR pattern in V1 suggests right ventricular conduction delay Nonspecific ST abnormality Abnormal ECG Confirmed by LIZETH CAREY ([id number]) on 10/21/2017 12:50:31 PM Referred By: HARINDER Confirmed By:LIZETH CAREY
--- NOTE | 2017-10-21 23:09 | DIS ---
This is a discharge summary dictated, described for Dr. Berhane Hussein. DATE OF ADMISSION: 10/20/2017 DATE OF DISCHARGE: 10/21/2017 ADMITTING DIAGNOSIS: High-burden premature ventricular contractions. CONDITION ON DISCHARGE: Stable. PROCEDURES PERFORMED: Electrophysiology study and radiofrequency ablation of PVCs in the left ventri dean. HISTORY OF PRESENT ILLNESS: Mr. Hernandez is a pleasant 71-year-old gentleman with history of diabet es, hypertension, and prior smoking with minimal coronary artery disease in his LAD and evaluation by Dr. Conway as well as borderline LV function. This is possibly worsened by his very frequent PVCs, in which he is asymptomatic. With that in mind, it was decided to move forward with an elective PVC ablation which was performed on 10/20/2017 and PVC burden was 30%. During his ablation, mapping reve aled early activation in the left ventricle between the left popliteal muscle and the mitral valve an nulus in the superior aspect. During the PVCs, local activation of electrograms preceding the QRS by over 30 milliseconds in the best location. RF energy was delivered at this spot and a total of 6 le sions were delivered. Patient was placed on Isuprel and extrastimuli were delivered, no additional t achyarrhythmias were inducible either on or off Isuprel. Overall, he tolerated the procedure well an d has not had any postoperative complications. His groin site is stable without hematoma or bleeding issue. He has maintained sinus rhythm over the night into the morning. PVCs have been seen on natalie tor since that time. For that reason, we will continue the metoprolol as previously prescribed and a lso recommend he stayed on aspirin. DISCHARGE MEDICATIONS: Metformin 500 mg 3 times a day, rosuvastatin 5 mg daily, glipizide 10 mg estephania y, amlodipine 5 mg daily, potassium chloride 10 mEq daily, metoprolol succinate 100 mg daily, losarta n/hydrochlorothiazide 100 mg/25 mg daily, pioglitazone 15 mg daily, vitamin D3 daily, vitamin B12 alfred ly, and aspirin 81 mg daily. DISCHARGE INSTRUCTIONS: Limit bending, lifting, and straining for the next 10-14 days. We recommend heart-healthy diet. No soaking baths for 1 week, okay to shower and remove dressing to the groin si de at 24 hours' postop. He has a followup appointment scheduled in [address] Hussein at [facility] (formerly [facility]) in [place].
--- NOTE | 2017-10-22 15:12 | EKG ---
Test Reason : Blood Pressure : / mmHG Vent. Rate : 049 BPM Atrial Rate : 049 BPM P-R Int : 198 ms QRS Dur : 102 ms QT Int : 460 ms P-R-T Axes : 047 -21 019 degrees QTc Int : 415 ms Marked sinus bradycardia RSR' or QR pattern in V1 suggests right ventricular conduction delay Nonspecific ST abnormality Abnormal ECG Confirmed by LIZETH CAREY ([id number]) on 10/22/2017 3:12:11 PM Referred By: HARINDER Confirmed By:LIZETH CAREY
== END 2017-10-21 14:33 | disposition home or self-care (01) ==
LOC: CCL 05:53 → 2SW 12:01
PROVIDERS: ADMIT Internal Medicine Cardiovascular Disease; ATTEND Internal Medicine Cardiovascular Disease
DX: I49.3 Ventricular premature depolarization (principal); E11.9 Type 2 diabetes mellitus without complications; I10 Essential (primary) hypertension; E78.5 Hyperlipidemia, unspecified; I25.10 Atherosclerotic heart disease of native coronary artery without angina pectoris; Z79.84 Long term (current) use of oral hypoglycemic drugs; Z79.899 Other long term (current) drug therapy; Z82.49 Family history of ischemic heart disease and other diseases of the circulatory system; Z87.891 Personal history of nicotine dependence; Z79.82 Long term (current) use of aspirin
CPT/HCPCS: 36416; 76942; 85347; 93005; 93010; 93613; 93623; 93654; 93662; C1730; C1759; C1769; G0378; J1644; J2001; J2704; J2720

== ENCOUNTER 2018-02-19 09:44 | Outpatient (CLI) | payer MEDICARE ==
--- NOTE | 2018-02-19 11:58 | ULT ---
ULTRASOUND ABDOMINAL AORTIC ANEURYSM: History: Aortic aneurysm screening. Comparison: None. FINDINGS: The proximal aorta measures 2 cm. Mid aorta measures 1.6 cm. Distal aorta measures 1.6 cm. IMPRESSION: No aneurysmal dilatation of the aorta. POS: [facility]
== END 2018-02-19 09:45 | disposition home or self-care (01) ==
LOC: BICULT 09:44
PROVIDERS: ATTEND Family Medicine
DX: Z13.6 Encounter for screening for cardiovascular disorders (principal)
CPT/HCPCS: 76706

== ENCOUNTER 2021-01-23 19:00 | Outpatient (CLI) | payer MEDICARE, OTHER | END 2021-01-23 19:01 | disposition home or self-care (01) | LOC: SLEEPLAB 19:00 | PROVIDERS: ATTEND Family Medicine | DX: G47.33 Obstructive sleep apnea (adult) (pediatric) (principal); R53.83 Other fatigue; E11.9 Type 2 diabetes mellitus without complications; I10 Essential (primary) hypertension; G47.10 Hypersomnia, unspecified; G47.61 Periodic limb movement disorder; E66.9 Obesity, unspecified; Z68.33 Body mass index [BMI] 33.0-33.9, adult | CPT/HCPCS: 95811 ==

== ENCOUNTER 2022-11-30 23:41 | Observation (INO) | payer MEDICARE, OTHER ==
[2022-12-01] MEDS ORDERED: Aspirin Chewable 81 MG TAB ONE (00:08)
[2022-12-01 00:38] LABS: #Basophils 0.1 thou/uL (0.0-0.2); #Eosinphils 0.4 thou/uL (0.0-0.7); #Monocytes 0.7 thou/uL (0.11-0.59); #Neutrophils 4.9 thou/uL (1.40-6.50); %Basophils 0.6 % (0.0-1.0); %Eosinophils 4.3 % (0.0-10.0); %Lymphocytes 27.7 % (21.0-51.0); %Monocytes 8.5 % (0.0-10.0); %Neutrophils 58.2 % (42.0-75.0); Hematocrit 44.3 % (42.0-52.0); Hemoglobin 15.2 g/dL (14.0-18.0); Mean Corpuscular HGB CONC 34.3 g/dL (32.0-36.0); Mean Corpuscular Hemoglobin 29.9 pg (27.0-31.0); Platelet Count 162 10x3/uL (130-400); RBC Distribution Width 13.5 % (11.5-14.5); Red Blood Cell (RBC) Count 5.09 mill/uL (4.70-6.10); White Blood Cell (WBC) Count 8.5 10x3/uL (4.8-10.8)
[2022-12-01 01:00] LABS: ALT (SGPT) 9 U/L (8-55); AST (SGOT) 15 U/L (5-34); Albumin 4.3 g/dL (3.4-4.8); Alkaline Phosphatase 76 U/L (40-110); Anion Gap 16 mmol/L (10-20); BUN (Urea Nitrogen) 26 mg/dL (8.4-25.7); Bilirubin, Total 0.4 mg/dL (0.2-1.2); Calc. Creatinine Clearance 0 mL/min (70-130); Calcium 10.4 mg/dL (7.8-10.44); Carbon Dioxide 25 mmol/L (23-31); Chloride 101 mmol/L (98-107); Estimated GFR 49; Globulin 3.1 g/dL (2.4-3.5); Glucose 152 mg/dL (83-110); Lipase 58 U/L (8-78); Potassium 3.2 mmol/L (3.5-5.1); Protein, Total 7.4 g/dL (5.8-8.1); Sodium 139 mmol/L (136-145)
[2022-12-01 01:05] LABS: Troponin I Less than 0.010 ng/mL (< 0.028)
[2022-12-01] MEDS ORDERED: Calcium Carbonate 500 MG ChewTAB PO PRN (02:45)
[2022-12-01] MEDS ORDERED: Acetaminophen 325 MG TAB PO PRN (02:45)
[2022-12-01] MEDS ORDERED: Senokot S 8.6-50 MG TAB PO PRN (02:45)
[2022-12-01] MEDS ORDERED: Ondansetron ODT 4 MG TAB PO PRN (02:45)
[2022-12-01 03:36] LABS: #Basophils 0.1 thou/uL (0.0-0.2); #Eosinphils 0.3 thou/uL (0.0-0.7); #Monocytes 0.7 thou/uL (0.11-0.59); #Neutrophils 5.7 thou/uL (1.40-6.50); %Basophils 0.6 % (0.0-1.0); %Monocytes 8.1 % (0.0-10.0); %Neutrophils 68.7 % (42.0-75.0); Hemoglobin 14.8 g/dL (14.0-18.0); Mean Corpuscular HGB CONC 33.6 g/dL (32.0-36.0); Mean Corpuscular Hemoglobin 29.8 pg (27.0-31.0); Mean Corpuscular Volume 88.5 fl (78.0-98.0); Mean Platelet Volume 10.9 fL (7.4-10.4); Platelet Count 156 10x3/uL (130-400); RBC Distribution Width 13.6 % (11.5-14.5); Red Blood Cell (RBC) Count 4.97 mill/uL (4.70-6.10); White Blood Cell (WBC) Count 8.3 10x3/uL (4.8-10.8)
[2022-12-01 04:00] LABS: Anion Gap 16 mmol/L (10-20); BUN (Urea Nitrogen) 24 mg/dL (8.4-25.7); Calc. Creatinine Clearance 0 mL/min (70-130); Calcium 10.8 mg/dL (7.8-10.44); Carbon Dioxide 24 mmol/L (23-31); Cardiac Risk 3.7 (Less than 4.5); Chloride 103 mmol/L (98-107); Cholesterol 132 mg/dl (< 200 Desired); Estimated GFR 54; Glucose 104 mg/dL (83-110); HDL Cholesterol 36 mg/dL (>60 Neg Risk); LDL Cholesterol, Calculated 63 mg/dL; Potassium 3.8 mmol/L (3.5-5.1); Sodium 139 mmol/L (136-145); Triglycerides 166 mg/dL (Less than 150)
[2022-12-01 04:02] LABS: Troponin I Less than 0.010 ng/mL (< 0.028)
[2022-12-01 04:03] LABS: Troponin I Less than 0.010 ng/mL (< 0.028)
[2022-12-01 05:52] VITALS: BMI 29.0
[2022-12-01 07:23] LABS: Troponin I 0.021 ng/mL (< 0.028)
[2022-12-01] MEDS ORDERED: glipiZIDE 10 MG TAB PO SCH (09:00)
[2022-12-01] MEDS ORDERED: Aspirin Chewable 81 MG TAB PO SCH (09:00)
[2022-12-01] MEDS ORDERED: Famotidine 20 MG TAB PO SCH (09:00)
[2022-12-01] MEDS ORDERED: metFORMIN 500 MG TAB PO SCH (09:00)
[2022-12-01 10:10] VITALS: BP 135/70
[2022-12-01 11:59] VITALS: TEMP 97.5
[2022-12-01] MEDS ORDERED: Aspirin 81 mg Enteric Coated Tablet PO SCH (21:00)
[2022-12-01] MEDS ORDERED: Rosuvastatin 5 MG TAB PO SCH (21:00)
[2022-12-01] MEDS ORDERED: Losartan/Hydrochlorothiazide 100 mg/25 mg Tablet PO SCH (21:00)
[2022-12-01] MEDS ORDERED: Amlodipine 5 MG TAB PO SCH (21:00)
== END 2022-12-01 15:04 | disposition home or self-care (01) ==
LOC: ERS 23:41 → IMCU/EMU 12-01 02:50
PROVIDERS: ADMIT Student in an Organized Health Care Education/Training Program; ATTEND Hospitalist
DX: R07.9 Chest pain, unspecified (principal); I13.0 Hypertensive heart and chronic kidney disease with heart failure and stage 1 through stage 4 chronic kidney disease, or unspecified chronic kidney disease; I50.20 Unspecified systolic (congestive) heart failure; N18.9 Chronic kidney disease, unspecified; E11.22 Type 2 diabetes mellitus with diabetic chronic kidney disease; E78.5 Hyperlipidemia, unspecified; Z79.82 Long term (current) use of aspirin; Z79.84 Long term (current) use of oral hypoglycemic drugs; Z79.899 Other long term (current) drug therapy; Z90.89 Acquired absence of other organs
CPT/HCPCS: 71045; 80048; 80053; 80061; 83690; 84484 ×2; 85025; 93005 ×2; 99285; G0378; 36415

== ENCOUNTER 2022-12-18 11:02 | Outpatient (CLI) | payer MEDICARE, OTHER ==
[2022-12-18 13:07] LABS: INR-International Normal Ratio 1.1; PTT 28.5 sec (22.0-33.0); Prothrombin Time 11.4 sec (9.5-12.1)
[2022-12-18 13:16] LABS: ALT (SGPT) 17 U/L (8-55); AST (SGOT) 20 U/L (5-34); Albumin 4.6 g/dL (3.4-4.8); Alkaline Phosphatase 50 U/L (40-110); Anion Gap 16 mmol/L (10-20); BUN (Urea Nitrogen) 32 mg/dL (8.4-25.7); Bilirubin, Direct 0.1 mg/dL (0.1-0.3); Bilirubin, Total 0.3 mg/dL (0.2-1.2); Calc. Creatinine Clearance 0 mL/min (70-130); Calcium 10.2 mg/dL (7.8-10.44); Carbon Dioxide 25 mmol/L (23-31); Chloride 103 mmol/L (98-107); Estimated GFR 49; Globulin 2.6 g/dL (2.4-3.5); Glucose 115 mg/dL (83-110); Potassium 4.1 mmol/L (3.5-5.1); Protein, Total 7.2 g/dL (5.8-8.1); Sodium 140 mmol/L (136-145)
== END 2022-12-18 11:03 | disposition home or self-care (01) ==
LOC: LABBT 11:02
PROVIDERS: ATTEND Internal Medicine Cardiovascular Disease
DX: Z01.812 Encounter for preprocedural laboratory examination (principal)
CPT/HCPCS: 80053; 80076; 85610; 85730

== ENCOUNTER 2022-12-20 05:52 | Day surgery (SDC) | payer MEDICARE, OTHER ==
[2022-12-18 12:01] VITALS: BMI 30.8
[2022-12-20] MEDS ORDERED: Lidocaine 1% (PF) 30 ML VIAL ONE (06:21)
[2022-12-20] MEDS ORDERED: Nitroglycerin 50 MG/250 ML BOT 250 ML ONE (06:21)
[2022-12-20] MEDS ORDERED: Heparin 10,000 UNITS/ 10 ML VIAL ONE ×2 (06:21→11:29)
[2022-12-20] MEDS ORDERED: Verapamil 5 MG/2 ML VIAL ONE (06:21)
[2022-12-20 06:57] LABS: Cardiac Risk 3.8 (Less than 4.5)
[2022-12-20 07:21] LABS: #Eosinphils 0.2 thou/uL (0.0-0.7); #Monocytes 0.6 thou/uL (0.11-0.59); %Basophils 0.6 % (0.0-1.0); %Eosinophils 2.5 % (0.0-10.0); %Lymphocytes 20.1 % (21.0-51.0); %Neutrophils 68.2 % (42.0-75.0); Hematocrit 43.6 % (42.0-52.0); Hemoglobin 14.8 g/dL (14.0-18.0); Mean Corpuscular HGB CONC 33.9 g/dL (32.0-36.0); Mean Corpuscular Hemoglobin 30.3 pg (27.0-31.0); Mean Corpuscular Volume 89.2 fl (78.0-98.0); Mean Platelet Volume 10.3 fL (7.4-10.4); Platelet Count 173 10x3/uL (130-400); RBC Distribution Width 13.9 % (11.5-14.5); Red Blood Cell (RBC) Count 4.89 mill/uL (4.70-6.10); White Blood Cell (WBC) Count 7.3 10x3/uL (4.8-10.8)
[2022-12-20] MEDS ORDERED: Iopamidol 370 76% 100 ML VIAL ONE (09:34)
[2022-12-20] MEDS ORDERED: Lidocaine 1% PF 5 ML VIAL ONE (11:30)
[2022-12-20] MEDS ORDERED: fentaNYL 50 mcg/mL 1 mL Vial ONE (11:59)
[2022-12-20] MEDS ORDERED: Midazolam HCl 2 mg/2 ml Vial ONE (11:59)
[2022-12-20] MEDS ORDERED: TICAGRELOR 90 MG TABLET ONE ×2 (13:18)
== END 2022-12-20 17:53 | disposition home or self-care (01) ==
LOC: CCL 05:52
PROVIDERS: ATTEND Internal Medicine Cardiovascular Disease
DX: I25.10 Atherosclerotic heart disease of native coronary artery without angina pectoris (principal); I49.3 Ventricular premature depolarization; I10 Essential (primary) hypertension; E78.5 Hyperlipidemia, unspecified; G47.30 Sleep apnea, unspecified; E11.9 Type 2 diabetes mellitus without complications; Z90.49 Acquired absence of other specified parts of digestive tract; Z79.84 Long term (current) use of oral hypoglycemic drugs; Z79.82 Long term (current) use of aspirin; Z79.899 Other long term (current) drug therapy; Z98.890 Other specified postprocedural states; Z87.891 Personal history of nicotine dependence
CPT/HCPCS: 80061; 85025; 85347; 93005; 93458; C1725 ×2; C1769 ×2; C1874; C1887; C1894 ×2; C9600; J3010; 92928; 93010; 99152; 99153; J1644; J2001; J2250; Q9967